=== PATIENT | female | born 1960 | race American Indian/Alaskan Native ===

== ENCOUNTER 2019-12-05 08:52 | Emergency (ER) | payer OTHER, MEDICAID ==
[2019-12-05 09:59] VITALS: BP 154/93
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
--- NOTE | 2019-12-05 11:11 | XRay Report ---
RIGHT KNEE 2 VIEW(S) INDICATION / CLINICAL INFORMATION: Right knee injury COMPARISON: None available. FINDINGS: No acute fracture or subluxation is identified. There is advanced tricompartmental degenera tive arthrosis with joint space narrowing, marginal osteophyte formation, and subchondral cystic harp ge. No large joint effusion. No radiopaque foreign object. IMPRESSION: 1. No acute osseous abnormality. 2. Advanced tricompartmental degenerative arthrosis. Signer Name: Hermilo Roman MD Signed: 12/05/2019 11:07 AM Workstation Name: [id number]
== END 2019-12-05 11:49 | disposition home or self-care (01) ==
LOC: ED 08:52
DX: M25.561 Pain in right knee (principal); E66.3 Overweight; F17.200 Nicotine dependence, unspecified, uncomplicated; V49.59XA Passenger injured in collision with other motor vehicles in traffic accident, initial encounter; Y93.89 Activity, other specified; Y92.488 Other paved roadways as the place of occurrence of the external cause; Y99.8 Other external cause status
CPT/HCPCS: 99283